=== PATIENT | female | born 1990 ===

== ENCOUNTER → 2022-10-19 | Outpatient (CLI) | payer OTHER ==
[~2022-10-19] MED LIST: IRON TABLETS325 MG PO; PRENATAL TABLET PO
--- NOTE | 2022-10-19 13:43 | NUR ---
Pt, Lucrecia Goncalves, presents with her 3 day old daughter, Shanna Goncalves, spouse and step-daughter. Pt requested consult to evaluate , latch, and milk supply. Shanna was born on [birth year] and weighed 6# 11.2oz (3040 gms). Pt states she was able to get Shanna latched the day of but after that she would not latch. Shanna is currently being supplemented with formula by bottle. Today Shanna weighs 6# 8.3oz (12949 gms). She is drinking 1-1.5oz formula from bottles each feeding. Her voids and stools are WNL for her age. Pt states she has tried pumping at home but is not getting anything out. LC assess pt's breasts, they are soft, do not have any fullness developing yet and colostrum is difficult to express. Pt instructed on support, position of baby to breast, and latching. LC assists with bringing baby to breast, baby seems to latch pretty well. Pt states it is more comfortable but has some pain. Pt tolerates pain. On second breast LC does not assist pt with latching. Pt gets baby latched. Baby does not have very active nursing on either side. Pt consents to LC using SNS. When SNS placed baby has much better jaw strokes, swallows are audible, and pt is able to see how much effort baby should be putting in at the breast. After Shanna has a gain of 3 gms from colostrum and 36 gms from formula. She is content. Pt is advised on 3-step feeding plan of offering breast, supplementing, and pumping. Pt can choose to supplement via SNS or bottle. Discussed weaning from formula once milk supply sets in. POC: as described above. F/U: Shanna has an appt with Dr. Omer in 4 days. Pt is aware of walk-in clinic if she desires further evaluation. Questions invited and answered.
== END ==
LOC: LAC 09:16
DX: Z39.1 Encounter for care and examination of lactating mother (principal); Z71.89 Other specified counseling